=== PATIENT | female | born 1950 ===

== ENCOUNTER 2023-04-23 14:08 | Inpatient (IN) | payer OTHER ==
[~2023-04-23] VITALS: Ht 162.6 cm; Wt 78.9 kg
[2023-04-25] MEDS ORDERED: AMLODIPINE-OLM1 EACH PO (10:40)
[2023-04-25] MEDS ORDERED: LIPITOR20 MG PO (10:40)
[2023-04-25] MEDS ORDERED: COZAAR100 MG PO (10:40)
[2023-04-25] MEDS ORDERED: MAXIMUM D3325 MCG PO (10:41)
[2023-04-25] MEDS ORDERED: PRILOSEC10 MG PO (10:41)
[2023-04-25] MEDS ORDERED: ZEGERID 40 MG1 EACH PO (10:41)
[2023-04-25] MEDS ORDERED: CHILDREN'S ASPI81 MG PO (10:41)
[2023-05-01] MEDS ORDERED: OMEPRAZOLE40 MG (13:07)
[2023-05-01] MEDS ORDERED: AMLODIPINE BESYL5 MG (13:07)
[2023-05-01 20:21] LABS: HEMATOCRIT 33.3 % (36.0-45.00); HEMOGLOBIN 10.8 g/dL (12.0-15.00); MEAN CELL VOLUME 83.8 fL (80.00-100.00); MEAN CORPUSCULAR HEMOGLOBIN 27.3 pg (27.00-32.0); MEAN CORPUSCULAR HGB CONC 32.6 g/dl (32.0-36.0); PLATELET COUNT 360 K/uL (150-450); RED BLOOD COUNT 3.97 M/uL (4.00-6.00); RED CELL DISTRIBUTION WIDTH 13.7 % (11.5-14.5)
[2023-05-01 20:44] LABS: CALCIUM 8.8 mg/dL (8.5-10.1); CREATININE SERUM 1.32 mg/dL (0.55-1.02); GFR 39.45; POTASSIUM 4.5 mEq/L (3.5-5.1)
[2023-05-02 05:19] LABS: HEMATOCRIT 33.1 % (36.0-45.00); MEAN CELL VOLUME 84.8 fL (80.00-100.00); MEAN CORPUSCULAR HEMOGLOBIN 28.1 pg (27.00-32.0); MEAN CORPUSCULAR HGB CONC 33.2 g/dl (32.0-36.0); PLATELET COUNT 343 K/uL (150-450); RED BLOOD COUNT 3.91 M/uL (4.00-6.00); RED CELL DISTRIBUTION WIDTH 13.4 % (11.5-14.5)
[2023-05-02 05:37] LABS: CREATININE SERUM 1.15 mg/dL (0.55-1.02); GFR 46.25; POTASSIUM 4.35 mEq/L (3.5-5.1)
== END 2023-05-02 11:17 | disposition home or self-care (01) | DRG 741 ==
LOC: O/R 05-01 06:14 → OB/GYN 05-01 06:14
PROVIDERS: Obstetrics & Gynecology; ADMIT Obstetrics & Gynecology Gynecologic Oncology; ATTEND Obstetrics & Gynecology Gynecologic Oncology
PROC: 0UT74ZZ Resection of Bilateral Fallopian Tubes, Percutaneous Endoscopic Approach (ICD-10-PCS; 2023-05-01)
PROC: 0UT24ZZ Resection of Bilateral Ovaries, Percutaneous Endoscopic Approach (ICD-10-PCS; 2023-05-01)
PROC: 07BC4ZZ Excision of Pelvis Lymphatic, Percutaneous Endoscopic Approach (ICD-10-PCS; 2023-05-01)
PROC: 0UT94ZZ Resection of Uterus, Percutaneous Endoscopic Approach (ICD-10-PCS; principal; 2023-05-01 09:15)
DX: C54.1 Malignant neoplasm of endometrium (principal); Z20.822 Contact with and (suspected) exposure to COVID-19